=== PATIENT | male | born 1980 | race Caucasian/White ===

== ENCOUNTER 2019-11-26 17:02 | Emergency (ER) | payer BC ==
[~2019-11-26] VITALS: Ht 172.7 cm; Wt 90.7 kg
[2019-11-26 17:44] LABS: URINE BILIRUBIN NEGATIVE (Negative); URINE BLOOD 3+ (Negative); URINE CLARITY TURBID; URINE COLOR RED; URINE GLUCOSE-RANDOM NEGATIVE (Negative); URINE KETONES NEGATIVE (Negative); URINE LEUKOCYTES-REFLEX TRACE (Negative); URINE NITRITE-REFLEX NEGATIVE (Negative); URINE PROTEIN 2+ (Negative); URINE SPECIFIC GRAVITY 1.025 (1.005-1.030); URINE UROBILINOGEN 0.2 E.U./dl (0.2-1.0)
[2019-11-26 17:44] LABS: HEMOGLOBIN 15.9 gm/dL (14.0-18.0); MCH 30.7 pg (26.0-34.0); MCHC 34.6 g/dL (28.0-37.0); MCV 88.8 fL (80.0-100.0); MPV 8.9 fl. (7.2-11.1); NUCLEATED RBCS 0 /100WBC; PLATELET COUNT* 222 thou/uL (150-400); RBC 5.18 mil/uL (4.50-6.00); RDW-CV 13.4 % (10.5-14.5); WBC 15.5 thou/uL (4.0-11.0)
[2019-11-26 17:46] LABS: CASTS None Seen /LPF (None Seen); SQUAMOUS 0-3 Few /LPF (0-3); URINE RBC >20 Many /HPF (0-2)
[2019-11-26 17:47] LABS: CRYSTALS None Seen /LPF (None Seen)
[2019-11-26 17:52] LABS: CALCIUM 8.9 mg/dL (8.5-10.1); CREATININE 1.3 mg/dL (0.6-1.3); POTASSIUM 4.3 mmol/L (3.5-5.1)
[2019-11-26 17:54] LABS: APTT 23.8 Seconds (25.0-31.3); INR 0.9; PROTIME 9.7 Seconds (9.20-11.50)
[2019-11-26 18:29] LABS: ABSOLUTE LYMPHOCYTES 1.6 thou/uL (0.8-5.3); ABSOLUTE MONOCYTES 0.9 thou/uL (0.0-1.2); PLATELET ESTIMATE ADEQUATE
[2019-11-26] MEDS ORDERED: CIPROFLOXACIN500 M1 PO (20:47)
[2019-11-26 21:51] VITALS: BP 120/59
== END 2019-11-26 21:51 | disposition home or self-care (01) ==
LOC: M.ERS 17:02
PROVIDERS: Emergency Medicine Emergency Medical Services
DX: R31.9 Hematuria, unspecified (principal); N12 Tubulo-interstitial nephritis, not specified as acute or chronic